=== PATIENT | female | born 1955 | race Caucasian/White ===

== ENCOUNTER 2018-11-19 23:23 | Inpatient (IN) ==
[2018-11-19] MEDS ORDERED: ASPIRIN ONE (23:32)
[2018-11-19] MEDS ORDERED: ASPIRIN PO ONE (23:33)
--- NOTE | 2018-11-19 23:48 | PROVIDER DOCUMENTATION ---
HPI-General Adult - General Chief Complaint: Chest Pain Stated Complaint: HEAD, NECK PAIN, CONGESTION Time Seen by Provider: 11/19/18 23:34 Source: patient, other (detention employee/records) Allergies/Adverse Reactions: Patient Allergies Allergy/AdvReac Type Severity Reaction Status Date / Time thioridazine HCl * Allergy Severe RASH Verified 11/16/17 12:57 [From Mellaril] chlorpromazine HCl * Allergy Unknown RASH Verified 11/16/17 12:57 [From Thorazine] Home Medications: Home Medication List Medication Instructions Recorded Confirmed Last Taken Type Latanoprost 0.005% Oph Soln 1 drop BOTH EYES HS 12/15/11 09/27/12 09/25/12 20:00 History [Xalatan 0.005% Oph Soln] 1 drop both eyes Docusate Sodium [Colace] 100 mg PO BID #30 capsule 01/10/12 09/27/12 12/26/12 08:00 Rx 100 mg [place]-3 Fatty Acids [Fish Oil 2,000 mg PO DAILY #30 capsule 01/10/12 09/27/12 12/26/12 08:00 Rx Concentrate] Omeprazole [Prilosec] 20 mg PO DAILY@0700 #30 capsule 01/10/12 09/27/12 12/26/12 08:00 Rx ATORVAstatin [Lipitor] 10 mg PO QHS 09/27/12 09/27/12 09/26/12 20:00 History 10 mg Acetaminophen 500 mg PO Q4-6H PRN PRN 09/27/12 09/27/12 09/24/12 15:40 History 500 mg Albuterol Sulfate [Proair Hfa] 2 inh IH Q6HR 09/27/12 09/27/12 09/26/12 12:00 History 1 inh Cholecalciferol (Vit D3) [Vitamin 1,000 unit PO DAILY 09/27/12 09/27/12 12/26/12 08:00 History D3] 1000units Cyanocobalamin [Vitamin B-12] 500 microgm PO DAILY 09/27/12 09/27/12 12/26/12 08:00 History 500mcg Loteprednol 0.5% Oph Susp [Lotemax 1 drop OPH BID 09/27/12 09/27/12 12/26/12 08:00 History 0.5% Oph Susp] 1 drop Levothyroxine [Synthroid] 200 microgm PO DAILY 11/16/12 11/16/12 12/26/12 08:00 History 200 mcg Metoclopramide [Reglan] 5 mg PO TID AC 11/16/12 11/16/12 12/26/12 12:00 History Sucralfate [Carafate] 1 gm PO TID 11/16/12 11/16/12 12/26/12 12:00 History 1 gram Sulfamethoxazole/Trimethoprim 1 each PO DAILY 11/16/12 11/16/12 11/16/12 08:00 History [Bactrim Ds Tablet] ATORVAstatin [Lipitor] 10 mg PO QHS #30 tablet 11/30/12 Unknown Rx Acetaminophen [Tylenol] 500 mg PO Q4-6H PRN PRN #90 tablet 11/30/12 12/22/12 15:00 Rx 500mg. Aspirin 81 mg PO QAM #30 chewtab 11/30/12 12/25/12 08:00 Rx 81mg Cholecalciferol (Vit D3) [Vitamin 1,000 unit PO DAILY #30 tablet 11/30/12 12/26/12 08:00 Rx D3] 1000 units Cyclosporine 0.05% Oph Drops 1 drop OPH BID #60 droperette 11/30/12 12/26/12 08:00 Rx [Restasis 0.05% Oph Drops] 1 drop each eye Dimethicone/Oxybenzone [place] 1 applicatn TOP PRN PRN #1 stick 11/30/12 Unknown Rx [Blistex Medicated [place] Lip [place]] Diphenhydramine [Benadryl] 50 mg PO HS PRN PRN #30 capsule 11/30/12 Unknown Rx Fluticasone/Salmet 250/50 INH 1 puff INH BID #1 inhaler 11/30/12 12/26/12 08:00 Rx [Advair 250/50 Diskus] 1 INH Gemfibrozil [Lopid] 600 mg PO BID #60 tablet 11/30/12 12/26/12 08:00 Rx 600 mg LISINOpril [Prinivil] 10 mg PO QAM #30 tablet 11/30/12 12/26/12 08:00 Rx 10 mg Mag Hydrox/Al Hydrox/Simeth 30 ml PO Q3H PRN PRN #0 udc 11/30/12 Unknown Rx [Maalox Plus Liquid] Magnesium Hydroxide [Milk of 30 ml PO HS PRN PRN #0 udc 11/30/12 Unknown Rx Magnesia] Mirtazapine [Remeron] 7.5 mg PO QHS #15 tablet 11/30/12 Unknown Rx Phenylep/Shk Lv/Mo/Pet,Wh Oint 0 gm AR BID #1 tube 11/30/12 Unknown Rx [Preparation H Oint] Phenytoin [Dilantin] 300 mg PO BID #180 capsule 11/30/12 12/26/12 08:00 Rx 300mg Polyethylene Glycol 3350 [Miralax] 17 gm PO QAM #30 powder, packet 11/30/12 12/26/12 08:00 Rx 17gm Eyelid Cleanser Comb No.4 [Ocusoft 50 ml TP HS 12/26/12 12/26/12 Unknown History Eyelid Cleanser] Iloperidone [Fanapt] 6 mg PO BID 12/26/12 12/26/12 12/26/12 08:00 History 6 mg Docusate Sodium [Colace] 100 mg PO DAILY #10 cap 10/20/17 Unknown Rx Magnesium Citrate [Citrate of 300 ml PO ONCE #1 bottle 10/20/17 Unknown Rx Magnesia] Na Phos,M-B/Na Phos,Di-Ba [Fleet 133 ml AR HS PRN PRN #3 enema 10/20/17 Unknown Rx Enema] - History of Present Illness -Gen Adult Nature of Presenting Problems: [id number] presents to the ER with c/o generalized pain and vague complaints of chest, abd, and back pain. She states "I just hurt all over, everywhere. I don't feel good." She states that she began to feel bad yesterday. During exam it was noted that pts O2 sats were 86% on RA. Records indicate a history of schizo affective disorder, Bipolar disorder, hyperlipidemia, COPD, glaucoma, DM2 and hypothyroidism. jail employee reports the patient has been afebrile. Patient does report cold symptoms. Location of Pain/Injury: reports: generalized Quality of Pain: reports: aching Severity: reports: moderate Onset/Duration: reports: 24 hours ago Associated Symptoms: reports: EENT symptoms Similar Symptoms Previously?: No Recently seen or treated by another doctor?: No Review of Systems - Adult - REVIEW OF SYSTEMS - ADULT Constitutional: reports: see HPI, fatique. denies: chills, fever Eyes: reports: no symptoms reported. denies: decreased vision, blurred vision, double vision Ears, Nose, Mouth & Throat: reports: see HPI, sinus problem, hoarseness Cardiovascular: reports: see HPI, chest pain (generalized, non-specific). denies: palpitations, poor circulation, syncope Respiratory: reports: see HPI, cough, dyspnea on exertion, shortness of breath Gastrointestinal: reports: no symptoms reported Genitourinary: reports: no symptoms reported Musculoskeletal: reports: no symptoms reported Integumentary: reports: no symptoms reported Neurological: reports: no symptoms reported Psychiatric: reports: no symptoms reported Endocrine: reports: no symptoms reported Hematologic/Lymphatic: reports: no symptoms reported Allergic/Immunologic: reports: no symptoms reported All Other Systems: Reviewed and Negative Past History - Adult - PAST MEDICAL HISTORY-ADULT Review of Records: reports: Old Records Reviewed, Nursing Assessment Review, Medications Reviewed, Social history reviewed & non-contributory. Major Childhood Illnesses: reports: denies history Cardiovascular: reports: HTN Respiratory: reports: COPD Gastrointestinal: reports: GERD Obstetrical/Gynecological: reports: denies history Genitourinary: reports: denies history Musculoskeletal: reports: denies history Neurological: reports: denies history Psychiatric: reports: bipolar, schizophrenia Endocrine/Immune: reports: Diabetes, thyroid disorder (hypo) Diabetes Type: Type 2 Other Conditions: reports: denies history - PRIOR SURGERIES/PROCEDURES Surgical/Procedure History: reports: hysterectomy, BTL, cholecystectomy - IMMUNIZATION STATUS Childhood Immunizations: See Nurse Assessment Flu Vaccine: See Nurse Assessment - FAMILY HISTORY Family History: reviewed, not pertinent - SOCIAL HISTORY Smoking: cigarettes, greater than 1 pack/day Provider spent 3-5 mins advising pt. on dangers of tobacco.: Discussed manners to quit use, and f/u contacts for add'l counseling. Substance Use: denies Living Situation: care facility Physical Exam-General - PHYSICAL EXAM-ADULT Initial Vital Signs Reviewed: Yes - CONSTITUTIONAL General Appearance: alert, mild distress - EYES Eyes: PERRL/EOMI, pink conjunctivae - HEAD, EARS, NOSE, MOUTH & THROAT HENMT: normocephalic/atraumatic, TMs normal, pharynx normal. negative: moist mucous membranes - NECK Neck: non-tender, full range of motion, supple - RESPIRATORY Respiratory: chest non-tender, lungs clear, normal breath sounds - CARDIOVASCULAR Cardiovascular: normal peripheral pulses, regular rate, rhythm - GASTROINTESTINAL (ABDOMEN) Abdominal Exam: normal bowel sounds, soft, distended - MUSCULOSKELETAL Extremity: normal range of motion, non-tender, normal gait Peripheral Pulses: radial (R): 2+, radial (L): 2+, dorsalis-pedis (R): 2+, dorsalis-pedis (L): 2+ - SKIN Integumentary: normal turgor, warm/dry, pallor - NEUROLOGIC Neurologic: no motor/sensory deficits - PSYCHIATRIC Psych/Mental Status: anxious Progress - PLAN OF CARE/RESULTS Progress/Plan/Lab Results: Vital Signs - 8 hr 11/19/18 23:25 Temperature 98.4 F Pulse Rate 94 H Respiratory Rate 20 Blood Pressure 100/52 O2 Sat by Pulse Oximetry 90 L Orders Category Date Time Status Cardiac Monitoring DIRECTED Care 11/19/18 23:33 Ordered Nursing- Obtain EKG ONCE Care 11/19/18 23:34 Ordered Oxygen Therapy- ED Nursing DIRECTED Care 11/19/18 23:33 Ordered Saline Loc NOW Care 11/19/18 23:33 Ordered CHEST-2 VIEWS [RAD] Stat Exams 11/19/18 23:34 Ordered CBC WITH ELECTRONIC DIFF [HEME] Stat Lab 11/19/18 23:34 Uncollected CK PROFILE [SP CHEM] Stat Lab 11/19/18 23:33 Uncollected CK TOTAL [CHEM] Stat Lab 11/19/18 23:34 Ordered COMPREHENSIVE METABOLIC PANEL [CHEM] Stat Lab 11/19/18 23:34 Uncollected FREE T4 Stat Lab 11/19/18 23:34 Uncollected MAGNESIUM [CHEM] Stat Lab 11/19/18 23:34 Uncollected PHOSPHORUS [CHEM] Stat Lab 11/19/18 23:34 Ordered PRO B-NATRIURETIC PEPTIDE Stat Lab 11/19/18 23:33 Uncollected PROTIME WITH INR [COAG] Stat Lab 11/19/18 23:33 Uncollected PTT [COAG] Stat Lab 11/19/18 23:33 Uncollected TROPONIN T Stat Lab 11/19/18 23:33 Uncollected TSH Stat Lab 11/19/18 23:34 Uncollected UA NIMS W/REFLEX CULT PL [URINALYSIS] Stat Lab 11/19/18 23:34 Uncollected URINE DRUG SCREEN PL Stat Lab 11/19/18 23:34 Uncollected Aspirin Med 11/19/18 23:32 Discontinued 325 mg .ROUTE .STK-MED ONE Aspirin Med 11/19/18 23:33 Once 325 mg PO NOW ONE CP/SOB/Palp >45 yrs of Age Stat Oth 11/19/18 23:33 Ordered EKG [EKG] Stat Ther 11/19/18 23:34 Ordered Result Diagrams: 11/19/18 23:54 11/19/18 23:54 - EKG 1 Time of EKG reading by physician:: 23:36 EKG Read and Signed by:: Ishmael Rhoades EKG Interpretation (*Must complete 3 of following elements*): Normal Rate: 94 Rhythm: NSR Bonner: normal QRS: normal AR Interval: normal ST Wave: normal Comments: repeat EKG at 0402: no interval changes - CHANGE OF SHIFT REPORT (ED Provider) 1 Report Given and Care Transferred to:: Dr Rhoades Time of Transfer: 00:59 Items Pending: Labs, Other (pending admit) Departure - Departure Date of Disposition Decision: 11/20/18 Time of Disposition Decision: 04:39 DIAGNOSIS: Pneumonia Qualifiers: Pneumonia type: due to unspecified organism Laterality: left Lung location: lower lobe of lung Qualified Code(s): J18.1 - Lobar pneumonia, unspecified organism Disposition: ADMITTED INPATIENT 09 Certified Medical Emergency: Emergent Condition: Stable Referrals and Follow-Ups: None,PCP [Primary Care Provider] - - Critical Care Note This patient required my direct & personal management of CC.: No Attestation - Physician/ PIERCE Attestation Patient care was provided by Advanced Practice Provider:: Yes Advanced Practice Provider:: Lee Mcintyre Advanced Practice Provider documentation review:: The Mid-level provider documentation, treatment plan and medical decision making was reviewed by the physician who agrees with all treatment and medical decision making by the MLP. The physician spent face to face time with patient:: No Advanced Practice Provider documentation review:: Supervising physician onsite and consulted in the evaluation and care of this patient. The physician did not have a face to face encounter with the patient.
[2018-11-20 00:16] LABS: BASO# 0.03 X1000 (0.0-0.2); BASO% 0.1 % (0.0-0.8); EOS# 0.14 X1000 (0.0-0.7); EOS% 0.6 % (0.0-10.0); HEMATOCRIT 37.5 % (37.0-47.0); HEMOGLOBIN 11.9 g/dL (12.0-16.0); IMM GRAN# 0.11 X1000 (0.0-0.04); IMM GRAN% 0.5 % (0.0-0.5); LYMPH# 1.49 X1000 (1.2-3.4); LYMPH% 6.4 % (20.5-51.1); MCHC 31.7 g/dL (33-37); MCV 94.5 FL (81-99); MONO# 1.72 X1000 (0.11-0.59); MONO% 7.4 % (1.7-9.3); MPV 10.1 FL (7.4-10.4); NEUT# 19.78 X1000 (1.4-6.5); PLT 226 X1000 (130-400); RBC 3.97 XMIL (4.2-5.4); RDW 13.8 % (11.5-14.5); WBC 23.27 X1000 (4.8-10.8)
[2018-11-20 00:19] LABS: UR AMPHETAMINES QUAL NONE DETECTED (NONE DETECT); UR BARBITUATES QUAL NONE DETECTED (NONE DETECT); UR BENZODIAZEPIN QUAL PRESUMPTIVE POSITIVE (NONE DETECT); UR CANNABINOIDS QUAL NONE DETECTED (NONE DETECT); UR COCAINE QUAL NONE DETECTED (NONE DETECT); UR METHADONE QUAL NONE DETECTED (NONE DETECT); UR METHAMPHETAMINE QUAL NONE DETECTED (NONE DETECT); UR OPIATES QUAL NONE DETECTED (NONE DETECT); UR OXYCODONE QUAL NONE DETECTED (NONE DETECT); UR PCP QUAL NONE DETECTED (NONE DETECT); UR PROPOXYPHENE QUAL NONE DETECTED (NONE DETECT); UR TCA QUAL NONE DETECTED (NONE DETECT)
[2018-11-20 00:23] LABS: INR 0.99; PROTIME 13.6 Seconds (11.0-16.0)
[2018-11-20 00:24] LABS: PTT 34.2 Seconds (22.3-41.8)
[2018-11-20 00:26] LABS: BILIRUBIN URINE NEGATIVE (NEGATIVE); BLOOD URINE NEGATIVE (NEGATIVE); GLUCOSE URINE NEGATIVE (NEGATIVE); KETONE URINE NEGATIVE (NEGATIVE); LEUKOCYTES URINE NEGATIVE (NEGATIVE); NITRITE URINE NEGATIVE (NEGATIVE); PROTEIN URINE 2+(100 mg/dL) mg/dL (NEGATIVE); SP GRAVITY URINE 1.005; UROBILINOGEN URINE NORMAL
[2018-11-20 00:27] LABS: CLARITY CLEAR (CLEAR); COLOR YELLOW
[2018-11-20 00:30] LABS: URINE BACTERIA 4+ /HFP; URINE CAST NONE SEEN /LPF; URINE CRYSTAL NONE SEEN /HPF; URINE EPITHELIAL CELLS <10 /HPF (<10); URINE RBC <10 /HPF (<10); URINE SOURCE CATH; URINE WBC <10 /HPF (<10); URINE YEAST NONE SEEN /HPF
[2018-11-20 00:37] LABS: ALBUMIN 3.7 g/dL (3.5-5.0); CALCIUM 8.5 mg/dL (8.8-10.2); CREATININE 1.4 mg/dL (0.5-0.9); MAGNESIUM 1.6 mg/dL (1.5-2.7); PHOSPHORUS 2.8 mg/dL (2.7-4.5); POTASSIUM 5.1 mmol/L (3.5-5.1); TOTAL BILIRUBIN 0.3 mg/dL (0.20-1.00); TOTAL PROTEIN 5.9 g/dL (6.3-8.3)
[2018-11-20 00:48] LABS: FREE T4 1.78 ng/dL (0.93-1.70); TSH 1.07 uIUmL (0.27-4.20)
[2018-11-20] MEDS ORDERED: ZITHROMAX 500 MG/NS 500 MG/250 ML IVPB IV ONE (00:52)
[2018-11-20] MEDS ORDERED: ROCEPHIN 1 GM in NS 50 ML IV ONE (00:52)
[2018-11-20] MEDS ORDERED: DUONEB (A & A) INH SCH (01:00)
[2018-11-20] MEDS ORDERED: ROCEPHIN 1 GM in NS 50 ML IV SCH (02:00)
[2018-11-20] MEDS: ZITHROMAX 500 MG/NS 500 MG/250 ML IVPB IV SCH (02:38)
[2018-11-20 05:51] LABS: BASO# 0.02 X1000 (0.0-0.2); BASO% 0.1 % (0.0-0.8); EOS% 0.5 % (0.0-10.0); HEMATOCRIT 35.6 % (37.0-47.0); HEMOGLOBIN 11.2 g/dL (12.0-16.0); IMM GRAN# 0.07 X1000 (0.0-0.04); IMM GRAN% 0.4 % (0.0-0.5); LYMPH# 1.59 X1000 (1.2-3.4); MCHC 31.5 g/dL (33-37); MCV 95.4 FL (81-99); MONO# 1.15 X1000 (0.11-0.59); MONO% 5.8 % (1.7-9.3); MPV 9.5 FL (7.4-10.4); NEUT# 16.83 X1000 (1.4-6.5); NEUT% 85.2 % (42.2-75.2); PLT 224 X1000 (130-400); RBC 3.73 XMIL (4.2-5.4); RDW 13.9 % (11.5-14.5); WBC 19.76 X1000 (4.8-10.8)
[2018-11-20 06:03] LABS: CREATININE 1.3 mg/dL (0.5-0.9)
[2018-11-20 06:16] LABS: POTASSIUM 4.6 mmol/L (3.5-5.1)
--- NOTE | 2018-11-20 08:25 | Diag Imaging Result Doc PS360 ---
EXAM: CHEST-PORTABLE INDICATION: SOB TECHNIQUE: One view COMPARISON: 10/20/2017 FINDINGS: There is a dense airspace consolidation involving the left lower lobe indicating pneumonia. There is no discrete pleural fluid collection or pneumothorax. The cardiomediastinal silhouette and central vasculature are grossly unremarkable. IMPRESSION: Left lower lobe pneumonia. Electronically signed by Hesham Garcia 11/20/2018 8:22 AM
--- NOTE | 2018-11-20 08:38 | EKG Report ---
Test Performed on : 11/20/2018 04:02:51 AM Test Reason : pain Blood Pressure : / mmHG Vent. Rate : 088 BPM Atrial Rate : 088 BPM P-R Int : 148 ms QRS Dur : 076 ms QT Int : 372 ms P-R-T Axes : 064 036 063 degrees QTc Int : 450 ms Normal sinus rhythm. Normal ECG When compared with ECG of 19-NOV-2018 23:36, (Unconfirmed) No significant change was found Unconfirmed Result
--- NOTE | 2018-11-20 08:38 | EKG Report ---
Test Performed on : 11/19/2018 11:36:04 PM Test Reason : cp Blood Pressure : / mmHG Vent. Rate : 094 BPM Atrial Rate : 094 BPM P-R Int : 142 ms QRS Dur : 076 ms QT Int : 354 ms P-R-T Axes : 071 059 078 degrees QTc Int : 442 ms Normal sinus rhythm. Normal ECG No previous ECGs available Unconfirmed Result
[2018-11-20] MEDS ORDERED: MILK OF MAGNESIA PO PRN (13:21)
--- NOTE | 2018-11-20 14:10 | HISTORY AND PHYSICAL ---
CHIEF COMPLAINT: Shortness of breath. HISTORY OF PRESENT ILLNESS: This is a 63-year-old female who lives in a prison with history of schizophrenia, schizoaffective disorder, who was brought to the emergency department because she was complaining of generalized pain, and vague complaints of chest, abdomen, and back pain. Upon my examination, she said that she was hurting in the shoulders, also pointing out her chest. She is not able to explain with details what exactly is going on. She reports just feeling not good. She reported that she started feeling like that yesterday. In the ER, they documented that the O2 saturations were 86 on room air. She does not use any oxygen at home. As we mentioned before, she has history of schizophrenia, bipolar disorder, hyperlipidemia, COPD, glaucoma, and diabetes. There is no prison employee in the room at the time of my examination. The patient is a poor historian. The patient is going to be admitted for left lower lobe pneumonia that we found out on the x-ray from yesterday. PAST MEDICAL HISTORY: 1. Schizoaffective disorder. 2. Diabetes mellitus type 2. 3. Hypothyroidism. 4. Dyslipidemia. 5. Hypertension. 6. Glaucoma. 7. Gastroesophageal disease. 8. Seizure disorder. PAST SURGICAL HISTORY: 1. Cholecystectomy. 2. Thyroidectomy. 3. Hysterectomy. SOCIAL HISTORY: She continues to smoke 1 pack per day. She denies using any alcohol or illicit drugs. ALLERGIES: She is allergic to chlorpromazine and also thioridazine. REVIEW OF SYSTEMS: Not possible to obtain because of mental status of this patient. PHYSICAL EXAMINATION: VITAL SIGNS: Temperature 98.6, heart rate 95, respiratory rate 18, blood pressure 135/62, O2 saturation 96% on 2 L nasal cannula. GENERAL: This is a 63-year-old female, lying in bed in no acute distress. CARDIOVASCULAR: S1, S2 heard. No murmurs, gallops, or rubs. Regular rate and rhythm. HEENT: Head is normocephalic, atraumatic. NECK: No JVD noted. No carotid bruits. No lymphadenopathy. No thyromegaly. CARDIOVASCULAR: S1, S2 heard. No murmurs, gallops, or rubs. Regular rate and rhythm. RESPIRATORY: Coarse breath sounds noted in both pulmonary bases. The patient is not using any accessory muscles. ABDOMEN: Soft, nontender to palpation. Bowel sounds present. No organomegaly. EXTREMITIES: No clubbing, cyanosis, or edema. Peripheral pulses present in both legs. GENITOURINARY: Andrea catheter in place. NEUROLOGICAL: The patient is alert and oriented in person and place. Moves all 4 extremities spontaneously. Speech sometimes is not coherent. LABORATORY DATA: White cell count 19.76, hemoglobin 11.6, hematocrit 35.6, platelets 224,000. Sodium 133, creatinine 1.3, glucose 178. ASSESSMENT AND PLAN: 1. Left lower lobe pneumonia. That is the reason why this patient is admitted to the hospital. The patient has been started on Levaquin, ceftriaxone, and azithromycin. His white cell count is still elevated in comparing with yesterday. I think at this point, will increase the dose of ceftriaxone to 2 grams intravenously every 24 hours, and will continue with azithromycin as well. Will add breathing treatment as needed. 2. Diabetes mellitus type 2. Will continue with sliding scale insulin and Accu-Chek before meals and also at bedtime. Will start a diabetic diet. 3. Hypertension. Will restart home medications. Blood pressure is under control. 4. Dyslipidemia. Will continue with current medications. 5. Disposition. Will continue to monitor this patient closely. Will get Physical Therapy involved. cc: Todd Kelly MD
[2018-11-20] MEDS: DUONEB (A & A) INH SCH ×2 (15:13→21:39)
[2018-11-20] MEDS: ROCEPHIN 2 GM in NS 50 ML IV SCH (16:56)
[2018-11-20] MEDS: HUMALOG (PARKWAY) SUBQ SCH ×2 (16:56→21:32)
[2018-11-20] MEDS: ULTRAM PO PRN (16:56)
[2018-11-20] MEDS ORDERED: CLOZARIL PO SCH (21:00)
[2018-11-20] MEDS: RESTASIS 0.05% OPH DROPS BOTH EYES SCH (21:16)
[2018-11-20] MEDS: XALATAN 0.005% OPH SOLN BOTH EYES SCH (21:17)
[2018-11-20] MEDS: LOXITANE PO SCH (21:17)
[2018-11-20] MEDS: LIPITOR PO SCH (21:19)
[2018-11-20] MEDS: SENOKOT PO SCH (21:19)
[2018-11-20] MEDS: ATIVAN PO SCH (21:19)
[2018-11-20] MEDS: ICAR-C PO SCH (21:19)
[2018-11-20] MEDS: COLACE PO SCH (21:19)
[2018-11-21] MEDS: ULTRAM PO PRN ×4 (00:47→20:31)
[2018-11-21] MEDS: ZITHROMAX 500 MG/NS 500 MG/250 ML IVPB IV SCH (00:59)
[2018-11-21] MEDS: DUONEB (A & A) INH SCH ×5 (03:14→21:18)
[2018-11-21] MEDS: SYNTHROID PO SCH ×2 (05:41→09:07)
[2018-11-21] MEDS: PRILOSEC PO SCH ×2 (05:41→09:07)
[2018-11-21 07:18] LABS: CALCIUM 8.5 mg/dL (8.8-10.2); CREATININE 1.4 mg/dL (0.5-0.9); POTASSIUM 4.4 mmol/L (3.5-5.1)
[2018-11-21 07:33] LABS: BASO# 0.01 X1000 (0.0-0.2); BASO% 0.1 % (0.0-0.8); EOS# 0.05 X1000 (0.0-0.7); EOS% 0.4 % (0.0-10.0); HEMATOCRIT 36.5 % (37.0-47.0); HEMOGLOBIN 11.1 g/dL (12.0-16.0); IMM GRAN# 0.05 X1000 (0.0-0.04); IMM GRAN% 0.4 % (0.0-0.5); LYMPH% 6.5 % (20.5-51.1); MCH 29.6 PG (27-31); MCHC 30.4 g/dL (33-37); MCV 97.3 FL (81-99); MONO# 1.31 X1000 (0.11-0.59); MONO% 9.4 % (1.7-9.3); MPV 10.5 FL (7.4-10.4); NEUT# 11.59 X1000 (1.4-6.5); NEUT% 83.2 % (42.2-75.2); PLT 245 X1000 (130-400); RBC 3.75 XMIL (4.2-5.4); RDW 14.1 % (11.5-14.5); WBC 13.91 X1000 (4.8-10.8)
[2018-11-21] MEDS: ICAR-C PO SCH ×2 (09:05→20:31)
[2018-11-21] MEDS: ATIVAN PO SCH ×2 (09:05→20:30)
[2018-11-21] MEDS: VITAMIN D PO SCH (09:05)
[2018-11-21] MEDS: VITAMIN B-12 PO SCH (09:05)
[2018-11-21] MEDS: COLACE PO SCH ×2 (09:06→20:31)
[2018-11-21] MEDS: TOPROL XL PO SCH (09:06)
[2018-11-21] MEDS: FISH OIL CONCENTRATE PO SCH (09:06)
[2018-11-21] MEDS: ASPIRIN PO SCH (09:06)
[2018-11-21] MEDS: RESTASIS 0.05% OPH DROPS BOTH EYES SCH ×2 (09:06→20:30)
[2018-11-21] MEDS: PATIENT'S OWN MED PO SCH ×2 (09:07→20:40)
[2018-11-21] MEDS: MIRALAX PO SCH (09:07)
[2018-11-21] MEDS: HUMALOG (PARKWAY) SUBQ SCH ×4 (09:07→20:32)
[2018-11-21] MEDS: ROCEPHIN 2 GM in NS 50 ML IV SCH (15:27)
[2018-11-21] MEDS: SENOKOT PO SCH (20:30)
[2018-11-21] MEDS: LOXITANE PO SCH (20:31)
[2018-11-21] MEDS: LIPITOR PO SCH (20:31)
[2018-11-21] MEDS: XALATAN 0.005% OPH SOLN BOTH EYES SCH (20:42)
--- NOTE | 2018-11-21 23:28 | PROGRESS NOTE ---
DATE: 11/21/2018 SUBJECTIVE: Patient notes that she is still short of breath. Does state that she smokes a pack a day at home. She is still having some cough and congestion. Denies any production to her cough. Denies any sick contacts. PHYSICAL EXAMINATION: Vital Signs: Reviewed. Temperature 97.6 degrees, pulse 96, respiratory 18, BP 112/59. General: Patient is awake, alert. She is in no current respiratory distress. Very pleasant to talk with. HEENT: Normocephalic. Neck: Supple. Cardiovascular: Regular rate. Chest: Clear. Abdomen: Soft, nondistended. Extremities: Moves all extremities. ASSESSMENT: 1. Left lower lobe pneumonia. Continue Rocephin, azithromycin. 2. Diabetes. 3. Hypertension. 4. Dyslipidemia. PLAN: We will continue physical therapy. Continue to attempt to get patient to ambulate as well as sit in the chair; hopefully, she can discharge home soon. cc: Jeremy Craig MD
[2018-11-22] MEDS: ZITHROMAX 500 MG/NS 500 MG/250 ML IVPB IV SCH (00:25)
[2018-11-22] MEDS: ULTRAM PO PRN ×2 (03:27→20:35)
[2018-11-22] MEDS: DUONEB (A & A) INH SCH ×4 (04:04→21:05)
[2018-11-22] MEDS: HUMALOG (PARKWAY) SUBQ SCH ×4 (06:05→21:48)
[2018-11-22] MEDS: SYNTHROID PO SCH (06:06)
[2018-11-22] MEDS: PRILOSEC PO SCH (06:06)
[2018-11-22] MEDS: TOPROL XL PO SCH (09:26)
[2018-11-22] MEDS: ZITHROMAX PO SCH (09:26)
[2018-11-22] MEDS: VITAMIN B-12 PO SCH (09:26)
[2018-11-22] MEDS: VITAMIN D PO SCH (09:26)
[2018-11-22] MEDS: ASPIRIN PO SCH (09:27)
[2018-11-22] MEDS: MIRALAX PO SCH (09:27)
[2018-11-22] MEDS: FISH OIL CONCENTRATE PO SCH (09:27)
[2018-11-22] MEDS: RESTASIS 0.05% OPH DROPS BOTH EYES SCH ×2 (09:27→20:27)
[2018-11-22] MEDS: COLACE PO SCH ×2 (09:27→20:28)
[2018-11-22] MEDS: ATIVAN PO SCH ×2 (09:27→20:28)
[2018-11-22] MEDS: ICAR-C PO SCH ×2 (09:28→20:28)
[2018-11-22] MEDS: PATIENT'S OWN MED PO SCH ×2 (09:36→20:28)
[2018-11-22] MEDS: ROCEPHIN 2 GM in NS 50 ML IV SCH (16:32)
[2018-11-22] MEDS: LIPITOR PO SCH (20:28)
[2018-11-22] MEDS: LOXITANE PO SCH (20:28)
[2018-11-22] MEDS: SENOKOT PO SCH (20:28)
[2018-11-22] MEDS: XALATAN 0.005% OPH SOLN BOTH EYES SCH (20:28)
--- NOTE | 2018-11-22 22:35 | PROGRESS NOTE ---
DATE: 11/22/2018 SUBJECTIVE: Patient notes she is still having some shortness of breath. Denies any fevers or chills. PHYSICAL EXAMINATION: Temperature 99.1 degrees, pulse 87, respiratory rate 18, BP 138/66.General: Patient is awake. She is currently in minimal respiratory distress. HEENT: Normocephalic. Neck: Supple. Cardiovascular: Regular rate. Chest: Decreased but equal breath sounds. No current wheezing. No crackles. Abdomen: Soft, nondistended, nontender, obese. Extremities: Moves all extremities. No edema. Neurologic: No changes. ASSESSMENT: 1. Left lower lobe pneumonia. Continues to improve. We are going to change her to Zithromax p.o., continue Rocephin today. 2. Diabetes. 3. Hypertension. 4. Dyslipidemia. 5. History of seizure disorder and schizoaffective disorder. PLAN: We are going to continue patient in the hospital. Discussed with her that she will need to be ready for discharge tomorrow. Her lungs are continuing to improve. Interestingly enough, she said that she cannot go home tomorrow because she will have to do chores if she goes home tomorrow. Regardless, her exam is improving. We are going to change her to p.o. antibiotics today. If she continues to remain stable, she can be discharged tomorrow. cc: Jeremy Craig MD
[2018-11-23] MEDS: DUONEB (A & A) INH SCH ×2 (04:21→10:45)
[2018-11-23] MEDS: PRILOSEC PO SCH (06:51)
[2018-11-23] MEDS: HUMALOG (PARKWAY) SUBQ SCH ×2 (06:51→11:22)
[2018-11-23] MEDS: SYNTHROID PO SCH (06:51)
[2018-11-23] MEDS ORDERED: OMNICEF PO SCH (09:00)
[2018-11-23] MEDS: MIRALAX PO SCH (09:13)
[2018-11-23] MEDS: TOPROL XL PO SCH (09:13)
[2018-11-23] MEDS: FISH OIL CONCENTRATE PO SCH (09:13)
[2018-11-23] MEDS: ZITHROMAX PO SCH (09:13)
[2018-11-23] MEDS: COLACE PO SCH (09:13)
[2018-11-23] MEDS: VITAMIN D PO SCH (09:13)
[2018-11-23] MEDS: VITAMIN B-12 PO SCH (09:13)
[2018-11-23] MEDS: ATIVAN PO SCH (09:14)
[2018-11-23] MEDS: ASPIRIN PO SCH (09:14)
[2018-11-23] MEDS: ICAR-C PO SCH (09:14)
[2018-11-23] MEDS: PATIENT'S OWN MED PO SCH (09:28)
[2018-11-23 10:26] LABS: BE -0.4 mmoll (-3.0-3.0); BLOOD TYPE ARTERIAL; HCO3-(ACT) 24.4 mmoll (20.0-26.0); METHB 0.4 % (0.0-1.5); O2(CT) 15.9 mL/dL (15.0-23.0); PCO2(98.6) 38 mmHg (35-45); PO2(98.6) 51 mmHg (60-100); SAMPLE BLOOD; SAO2 88.9 % (95.0-100.0); THB 12.9 g/dL (11.5-17.4); pH(98.6) 7.41 (7.35-7.45)
[2018-11-23 10:30] LABS: ALLEN TEST YES; MODALITY ROOM AIR; O2HB 87.8 % (95.0-99.0)
[2018-11-23 12:29] VITALS: BP 130/61
--- NOTE | 2018-11-24 08:42 | DISCHARGE SUMMARY ---
ADMISSION DATE: 11/20/2018 DISCHARGE DATE: 11/23/2018 CONSULTATIONS: None. PERTINENT PROCEDURES: Chest x-ray: Left lower lobe pneumonia. DISCHARGE DIAGNOSES: 1. Left lower lobe pneumonia. Patient has continued to improve. She was taken off IV antibiotics and transitioned to p.o. and is being discharged on Zithromax and Omnicef. 2. Diabetes. 3. Hypertension. 4. Dyslipidemia. 5. History of seizure disorder and schizoaffective disorder. HOSPITAL COURSE: Briefly, Ms. Hutchinson is a 63-year-old female that lives in a alf with a history of schizophrenia, schizoaffective disorder, diabetes mellitus, hypertension, seizure disorder, who was brought to the ED because she was complaining of generalized pain and vague complaints of chest pain, abdomen and back pain. Workup in the ED revealed a left lower lobe pneumonia. Her O2 saturations were 86% on room air. She was initiated on supplemental O2, IV antibiotics and aggressive pulmonary toilet. She has improved greatly throughout her hospital stay. She was transitioned to p.o. antibiotics and will be discharged home on a Z-Harsha and Omnicef. She also qualified for home O2 which has been set up. She has been discharged on her home O2. VITAL SIGNS: Temperature is 98.2 degrees, heart rate 84, respirations 14, blood pressure 130/61, O2 is 94% to 2 L. DISCHARGE DIET: Diabetic. DISCHARGE MEDICATIONS: 1. Lipitor 10 mg p.o. at bedtime. 2. Loxapine 25 mg p.o. at bedtime. 3. Senna 8.6 mg p.o. at bedtime. 4. ProAir inhaler 8.5 g inhaled q.6 hours. 5. Clobetasol propionate 1 dose topical as directed. 6. Clozapine 50 mg p.o. q.a.m. 7. Clozapine 150 mg p.o. at bedtime. 8. Colace 100 mg p.o. b.i.d. 9. Glipizide 10 mg p.o. b.i.d. 10. Icar C 1 tab p.o. b.i.d. 11. Lorazepam 0.5 mg p.o. b.i.d. 12. Acetaminophen 650 mg p.o. q.4-6 hours p.r.n. 13. Metformin 500 mg p.o. with supper. 14. Metoprolol 25 mg p.o. daily. 15. Prilosec 40 mg p.o. daily. 16. Restasis 1 drop both eyes b.i.d. 17. Sulamyd 3 drops left ear b.i.d. 18. Symbicort inhaler b.i.d. 19. Synthroid 112 mcg p.o. daily. 20. Thermotabs 1 dose p.o. daily. 21. Vitamin B12 1000 mcg p.o. daily. 22. Vitamin D3 1000 units p.o. daily. 23. Xalatan 1 drop both eyes at bedtime. 24. Lipitor 10 mg p.o. at bedtime. 25. Maalox Plus 30 mL p.o. q.3 hours p.r.n. 26. Aspirin 81 mg p.o. q.a.m. 27. Blistex p.r.n. to lips. 28. Fish oil 2000 mg p.o. daily. 29. Milk of Magnesia 30 mL p.o. at bedtime p.r.n. 30. MiraLAX 17 g p.o. q.a.m. 31. Omnicef 300 mg p.o. b.i.d. 32. Restasis 1 drop ophthalmic b.i.d. 33. Vitamin D3 1000 units p.o. daily. 34. Azithromycin 250 mg p.o. daily x4. FOLLOW-UP: Ms. Hutchinson is being discharged back home with home O2. She is to take all medications as prescribed. She can return to the ED or call 911 for any worsening of symptoms. Dictated by RUFINA Cowan for Jeremy Craig MD cc: MD Nikki Lewis MD
--- NOTE | 2018-11-24 20:39 | DISCHARGE SUMMARY ---
ADMISSION DATE: 11/20/2018 DISCHARGE DATE: 11/23/2018 ADDENDUM: Patient seen and examined. Full note dictated and discussed with nurse practitioner. Patient, on discharge, is awake, alert. She is ambulating back and forth to the restroom with seemingly no difficulty. She does have some shortness of breath with further ambulation. She was admitted with left lower lobe pneumonia and hypoxic respiratory failure. She will be discharged home on antibiotics and on oxygen. cc: Jeremy Craig MD
== END 2018-11-23 14:04 | disposition home or self-care (01) | DRG 194 ==
LOC: P.ED 23:23 → SUATTDRO 11-20 09:18 → P.MEDSURG 11-20 09:18
PROVIDERS: ATTEND Family Medicine